=== PATIENT | female | born 1990 | race Caucasian/White ===

== ENCOUNTER 2024-03-06 05:23 | Inpatient (IN) ==
[2024-03-06] MEDS ORDERED: Lidocaine 1% VIAL 10 MG/ML 30 ML VIAL INJ PRN (07:30)
[2024-03-06] MEDS: Lactated Ringers 1000 ml BAG 1,000 ML IV ONE (07:55)
[2024-03-06] MEDS: Nalbuphine 10 MG/ML 1 ML VIAL IV PRN (07:56)
[2024-03-06 08:10] LABS: ABS Basophils 0.1 10^3/uL (0.0-0.1); ABS Eosinophils 0.1 10^3/uL (0.0-0.5); ABS Lymphocytes 2.1 10^3/uL (1.0-4.8); ABS Monocytes 0.9 10^3/uL (0.0-0.9); ABS Neutrophils 10.4 10^3/uL (1.5-7.6); Eosinophil % 0.6 %; Hematocrit 36.7 % (35-45); Hemoglobin 12.4 g/dL (11.5-14.3); Lymphocyte % 15.2 %; Mean Corpuscular Hemoglobin 29.6 pg (27-33); Mean Corpuscular Hgb Conc 33.8 g/dL (31-36); Mean Corpuscular Volume 87.4 fL (80-97); Mean Platelet Volume 8.8 fL (7.5-11.2); Platelet Count 181 10^3/uL (150-450); Red Cell Distribution Width 14.6 % (12-17); White Blood Count 13.5 10^3/uL (3.8-11.8)
[2024-03-06 08:23] LABS: Urine Benzodiazepine Screen None Detected (None Detect); Urine Cannabinoids Screen None Detected (None Detect); Urine Opiates Screen None Detected (None Detect)
[2024-03-06] MEDS: Lactated Ringers 1000 ml BAG 1,000 ML IV SCH (08:30)
[2024-03-06] MEDS ORDERED: OBEPIDURAL (200 ML) 200 ML EPIDURAL ONE (08:46)
[2024-03-06] MEDS ORDERED: Phenylephrine 40 mcg/mL 10mL (400mcg) SYRINGE IV PUSH PRN ×2 (08:49)
[2024-03-06] MEDS ORDERED: Sodium Citrate/Citric Acid LIQ 15 ML UDC PO PRN (08:49)
[2024-03-06] MEDS: OBEPIDURAL (200 ML) 200 ML EPIDURAL SCH (09:14)
[2024-03-06 10:46] LABS: Urine Appearance Clear; Urine Bilirubin Negative (Negative); Urine Blood 1+ (Negative); Urine Color Light-Yellow; Urine Glucose Negative (Negative); Urine Ketones 1+ (Negative); Urine Nitrite Negative (Negative); Urine Protein Negative (Negative); Urine Specific Gravity 1.012 (1.002-1.030); Urine Urobilinogen Negative (Negative)
[2024-03-06 10:53] LABS: Urine Bacteria Absent /HPF (Absent); Urine Red Blood Cell 3+(>10/hpf) /HPF (0-Trace); Urine Squamous Epithelial Cell Present /HPF (Absent); Urine White Blood Cell 1+(6-10/hpf) /HPF (0-Trace)
[2024-03-06] MEDS: Ondansetron 4 mg VIAL 2 MG/ML 2 ml VIAL IV PRN (13:38)
[2024-03-06] MEDS: Oxytocin in LR 20,000 MILLI.UNIT/1,000 ML BAG IV SCH (14:00)
[2024-03-06] MEDS ORDERED: Glycerin ADULT 2.4 gm SUPP PR PRN (14:47)
[2024-03-06] MEDS ORDERED: Lactated Ringers 1000 ml BAG 1,000 ML IV SCH (15:00)
[2024-03-06] MEDS: Witch Hazel PAD JAR TOPICAL PRN (15:40)
[2024-03-06] MEDS: Dibucaine 1% OINT 28.35 GM TUBE PR PRN (15:40)
[2024-03-07 06:30] LABS: ABS Basophils 0.1 10^3/uL (0.0-0.1); ABS Eosinophils 0.1 10^3/uL (0.0-0.5); ABS Lymphocytes 2.6 10^3/uL (1.0-4.8); ABS Monocytes 1.1 10^3/uL (0.0-0.9); ABS Neutrophils 11.5 10^3/uL (1.5-7.6); ABS Nucleated RBC 0.01 10^3/ul; Eosinophil % 0.4 %; Hematocrit 29.1 % (35-45); Lymphocyte % 16.9 %; Mean Corpuscular Hemoglobin 29.7 pg (27-33); Mean Corpuscular Hgb Conc 34.3 g/dL (31-36); Mean Corpuscular Volume 86.7 fL (80-97); Mean Platelet Volume 8.4 fL (7.5-11.2); Platelet Count 170 10^3/uL (150-450); Red Blood Count 3.36 10^6/uL (3.63-4.92); Red Cell Distribution Width 14.4 % (12-17); White Blood Count 15.3 10^3/uL (3.8-11.8)
[2024-03-07] MEDS: Lidocaine/Epinephrin 1.5%/200 5 ML AMP INJ ONE (14:45)
[2024-03-07] MEDS: Phenylephrine 40 mcg/mL 10mL (400mcg) SYRINGE ONE (14:45)
[2024-03-07] MEDS: Lactated Ringers 1000 ml BAG 1,000 ML IV ONE (14:46)
[2024-03-07] MEDS: Buffered Lidocaine 1% SYRIN 1 ml INTRADERM ONE (14:46)
[2024-03-07] MEDS: Lactated Ringers 1000 ml BAG 1,000 ML IV SCH (14:47)
[2024-03-07] MEDS: Lidocaine 2% JELLY 6 ML Topical TOPICAL ONE (14:47)
[2024-03-07] MEDS: Oxytocin in LR 20,000 MILLI.UNIT/1,000 ML BAG IV SCH (14:48)
[2024-03-08 08:11] VITALS: BP 108/64
== END 2024-03-08 13:05 | disposition home or self-care (01) | DRG 560 ==
LOC: MCHOBOUT 05:23 → MCHOB 06:09
PROVIDERS: ADMIT Advanced Practice Midwife; ATTEND Advanced Practice Midwife